=== PATIENT | male | born 1930 | race Caucasian/White ===

== ENCOUNTER 2017-08-08 17:23 | Emergency (ER) | payer OTHER, BC ==
[~2017-08-08] VITALS: Ht 177.8 cm; Wt 69.8 kg
[~2017-08-08 17:23] MED LIST: ASPIRIN81 M1 PO; AVODART0.5 MG PO; CHILD ASPIRIN81 M1 PO; COLACE100 MG PO; Colace PO; DIOVAN80 MG PO; FLUNISOLIDE25 ML BOTH NARES; HYTRIN5 MG PO; LEVAQUIN750 MG PO; MIRALAX17 GM PO; MUCINEX50 MG PO; Mucinex PO; ROBITUSSIN LON118 ML PO; ROBITUSSIN100 MG/5 M PO; SIMVASTATIN40 MG PO; SPIRIVA1 INHALATI IH; TRAMADOL HCL50 MG PO; VENTOLIN HFA18 GM IH; XOPENEX HF200 INHALA IH
[2017-08-08 18:57] VITALS: BP 139/81
== END 2017-08-08 18:39 | disposition home or self-care (01) ==
LOC: EME 17:23
DX: L76.21 Postprocedural hemorrhage of skin and subcutaneous tissue following a dermatologic procedure (principal); Z85.828 Personal history of other malignant neoplasm of skin; R21 Rash and other nonspecific skin eruption; M54.2 Cervicalgia; H57.12 Ocular pain, left eye; J44.9 Chronic obstructive pulmonary disease, unspecified; Z79.82 Long term (current) use of aspirin; Z87.891 Personal history of nicotine dependence

== ENCOUNTER 2017-12-18 10:59 | Emergency (ER) | payer OTHER, BC ==
[~2017-12-18] VITALS: Ht 172.7 cm; Wt 68.1 kg
[2017-12-18 13:28] VITALS: BP 124/89
== END 2017-12-18 13:30 | disposition home or self-care (01) ==
LOC: EME 10:59
DX: S60.222A Contusion of left hand, initial encounter (principal); S61.412A Laceration without foreign body of left hand, initial encounter; W31.89XA Contact with other specified machinery, initial encounter; Y92.238 Other place in hospital as the place of occurrence of the external cause; J44.9 Chronic obstructive pulmonary disease, unspecified; K21.9 Gastro-esophageal reflux disease without esophagitis; M15.9 Polyosteoarthritis, unspecified; Z79.82 Long term (current) use of aspirin; Z88.2 Allergy status to sulfonamides; Z87.891 Personal history of nicotine dependence
CPT/HCPCS: 73130; 99281; 99284

== ENCOUNTER 2018-02-28 06:23 | Day surgery (SDC) | payer OTHER, BC ==
[~2018-02-28] VITALS: Ht 162.6 cm; Wt 68.0 kg
[~2018-02-28 06:23] MED LIST changes: +CALCIUM 500 MG1 EACH PO
[2018-02-28 07:10] VITALS: BP 163/77
[2018-02-28 10:34] VITALS: BP 161/76
[2018-02-28 11:34] VITALS: BP 157/82
[2018-02-28 12:30] VITALS: BP 167/85
== END 2018-02-28 12:30 | disposition home or self-care (01) ==
LOC: SDC 06:23
PROC: 0QU03JZ Supplement Lumbar Vertebra with Synthetic Substitute, Percutaneous Approach (ICD-10-PCS; principal; 2018-02-28)
DX: S32.040A Wedge compression fracture of fourth lumbar vertebra, initial encounter for closed fracture (principal); X58.XXXA Exposure to other specified factors, initial encounter; M80.08XA Age-related osteoporosis with current pathological fracture, vertebra(e), initial encounter for fracture; I25.10 Atherosclerotic heart disease of native coronary artery without angina pectoris; I10 Essential (primary) hypertension; I71.2 Thoracic aortic aneurysm, without rupture; J44.9 Chronic obstructive pulmonary disease, unspecified; E78.5 Hyperlipidemia, unspecified; Z88.2 Allergy status to sulfonamides; Z88.8 Allergy status to other drugs, medicaments and biological substances; Z79.82 Long term (current) use of aspirin
CPT/HCPCS: 87641; J0690; J3010